=== PATIENT | female | born 1980 | race Caucasian/White ===

== ENCOUNTER 2017-06-28 00:06 | Emergency (ER) | payer OTHER ==
--- NOTE | 2017-06-28 00:59 | EDPHYS ---
Physician Documentation [facility] Name: Wandy Forde Age: 36 yrs Sex: Female : 1980 Arrival Date: 06/28/2017 Time: 00:11 Bed 18 Private MD: ED Physician Fletcher Soares HPI: 06/28 01:10 This 36 yrs old Female presents to ER via Ambulatory with complaints of snw Pelvic Pain. 01:10 The patient presents with right inguinal bump with tenderness. Onset: The snw symptoms/episode began/occurred suddenly, last night, and became persistent. Associated signs and symptoms: Pertinent positives: painful to touch area at right inguinal area. Severity of symptoms: At their worst the symptoms were mild, moderate. The patient has not experienced similar symptoms in the past. The patient has not recently seen a physician. no fever, vaginal discharge, + cutaneous abscess that popped on it's own about a week ago. 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 - Social history:: Smoking status: Patient/guardian denies using tobacco. ROS: 01:09 Constitutional: Negative for fever, chills, and weight loss, Eyes: Negative for injury, snw pain, redness, and discharge, ENT: Negative for injury, pain, and discharge, Neck: Negative for injury, pain, and swelling, Cardiovascular: Negative for chest pain, palpitations, and edema, Respiratory: Negative for shortness of breath, cough, wheezing, and pleuritic chest pain, Abdomen/GI: Negative for abdominal pain, nausea, vomiting, diarrhea, and constipation, Back: Negative for injury and pain, : Negative for injury, bleeding, discharge, Positive swelling to low right inguinal canal with "bump" MS/Extremity: Negative for injury and deformity, Skin: Negative for injury, rash, and discoloration, Neuro: Negative for headache, weakness, numbness, tingling, and seizure. Exam: 01:01 Constitutional: This is a well developed, well nourished patient who is awake, alert, snw and in no acute distress. Head/Face: Normocephalic, atraumatic. Eyes: Pupils equal round and reactive to light, extra-ocular motions intact. Lids and lashes normal. Conjunctiva and sclera are non-icteric and not injected. Cornea within normal limits. Periorbital areas with no swelling, redness, or edema. ENT: Nares patent. No nasal discharge, no septal abnormalities noted. Tympanic membranes are normal and external auditory canals are clear. Oropharynx with no redness, swelling, or masses, exudates, or evidence of obstruction, uvula midline. Mucous membranes moist. Neck: Trachea midline, no thyromegaly or masses palpated, and no cervical lymphadenopathy. Supple, full range of motion without nuchal rigidity, or vertebral point tenderness. No Meningismus. Chest/axilla: Normal chest wall appearance and motion. Nontender with no deformity. No lesions are appreciated. Cardiovascular: Regular rate and rhythm with a normal S1 and S2. No gallops, murmurs, or rubs. Normal PMI, no JVD. No pulse deficits. Respiratory: Lungs have equal breath sounds bilaterally, clear to auscultation and percussion. No rales, rhonchi or wheezes noted. No increased work of breathing, no retractions or nasal flaring. Abdomen/GI: Soft, non-tender, with normal bowel sounds. No distension or tympany. No guarding or rebound. No evidence of tenderness throughout. Back: No spinal tenderness. No costovertebral tenderness. Full range of motion. Pelvic Exam: Normal external genitalia with small healing cutaneous abscess, tender, edematous right inguinal lymph node. Skin: Warm, dry with normal turgor. Normal color with no rashes, no lesions, and no evidence of cellulitis. MS/ Extremity: Pulses equal, no cyanosis. Neurovascular intact. Full, normal range of motion. Neuro: Awake and alert, GCS 15, oriented to person, place, time, and situation. Cranial nerves II-XII grossly intact. Motor strength 5/5 in all extremities. Sensory grossly intact. Cerebellar exam normal. Normal gait. Psych: Awake, alert, with orientation to person, place and time. Behavior, mood, and affect are within normal limits. Vital Signs: 00:43 BP 133 / 82; Pulse 104; Resp 18; Temp 98.1(TE); Pulse Ox 100% on R/A; Weight 74.84 kg ak1 (R); Height 5 ft. 5 in. (165.10 cm) (R); Pain 6/10; 01:18 BP 115 / 74; Pulse 93; Resp 16; Pulse Ox 97% on R/A; Pain 0/10; mb3 00:43 Body Mass Index 27.46 (74.84 kg, 165.10 cm) ak1 MDM: 00:52 Patient medically screened. snw 01:08 Data reviewed: vital signs, nurses notes. Data interpreted: Pulse oximetry: on room air snw is 100 %. Interpretation: normal. Counseling: I had a detailed discussion with the patient and/or guardian regarding: the historical points, exam findings, and any diagnostic results supporting the discharge/admit diagnosis, the presence of at least one elevated blood pressure reading (>120/80) during this emergency department visit, lab results, the need for outpatient follow up, to return to the emergency department if symptoms worsen or persist or if there are any questions or concerns that arise at home. Special discussion: I have referred the patient to see his PCP for further evaluation of high blood pressure. Based on the history and exam findings, there is no indication for further emergent testing or inpatient evaluation. I discussed with the patient/guardian the need to see the primary care provider for further evaluation of the symptoms. 06/28 00:57 Order name: Urine Dipstick--Ancillary (enter results); Complete Time: 01:11 em1 06/28 00:57 Order name: Urine --Ancillary (enter results); Complete Time: 01:11 em1 06/28 00:57 Order name: Urine Dipstick-Ancillary (obtain specimen); Complete Time: 00:57 em1 06/28 00:57 Order name: Urine Test (obtain specimen); Complete Time: 00:57 em1 Administered Medications: 01:08 Drug: Clindamycin 300 mg Route: PO; mb3 01:25 Follow up: Response: No adverse reaction mb3 01:08 Drug: TORadol 60 mg Route: IM; Site: right gluteus; mb3 01:25 Follow up: Response: No adverse reaction; Pain is decreased mb3 Disposition: 06/28/17 00:58 Discharged to Home. Impression: INFLAMMED INGUINAL LYMPH NODE, CUTANEOUS ABSCESS OF LABIA. - Condition is Stable. - Discharge Instructions: Abscess, Sitz Bath, Lymphadenopathy. - Prescriptions for Clindamycin HCl 300 mg Oral Capsule - take 1 capsule by ORAL route every 6 hours for 10 days; 40 capsule. Diclofenac Sodium 75 mg Oral Tablet Sustained Release - take 1 tablet by ORAL route 2 times per day; 30 tablet. - Medication Reconciliation Form, Thank You Letter, Antibiotic Education, Prescription Opioid Use form. - Follow up: Private Physician; When: 2 - 3 days; Reason: Recheck today's complaints, Continuance of care, Re-evaluation by your physician. Follow up: Emergency Department; When: As needed; Reason: Worsening of condition. Addendum: 07/01/2017 19:49 Co-signature as Attending Physician, Fletcher Soares MD. g s Signatures: Dispatcher [employer] EDMS Margarita Steward, PAINTER HELPER SPRAY-C PAINTER HELPER SPRAY-Csnw James Garcia1 Cece Garcia, RN RN ak1 Fletcher Soares MD MD Ulises Scruggs, RN RN mb3 Corrections: (The following items were deleted from the chart) 06/28 01:00 00:58 06/28/2017 00:58 Discharged to Home. Impression: INFLAMMED INGUINAL LYMPH NODE. snw Condition is Stable. Forms are Medication Reconciliation Form, Thank You Letter, Antibiotic Education, Prescription Opioid Use. Follow up: Private Physician; When: 2 - 3 days; Reason: Recheck today's complaints, Continuance of care, Re-evaluation by your physician. Follow up: Emergency Department; When: As needed; Reason: Worsening of condition. snw 01:25 01:00 06/28/2017 00:58 Discharged to Home. Impression: INFLAMMED INGUINAL LYMPH NODE; mb3 CUTANEOUS ABSCESS OF LABIA. Condition is Stable. Forms are Medication Reconciliation Form, Thank You Letter, Antibiotic Education, Prescription Opioid Use. Follow up: Private Physician; When: 2 - 3 days; Reason: Recheck today's complaints, Continuance of care, Re-evaluation by your physician. Follow up: Emergency Department; When: As needed; Reason: Worsening of condition. snw
--- NOTE | 2017-06-28 00:59 | ER ---
Nurse's Notes [facility] Name: Wandy Forde Age: 36 yrs Sex: Female : 1980 Arrival Date: 06/28/2017 Time: 00:11 Bed 18 Private MD: Diagnosis: INFLAMMED INGUINAL LYMPH NODE;CUTANEOUS ABSCESS OF LABIA Presentation: 06/28 00:44 Presenting complaint: Patient states: right lower abd, right pelvic pain started ak1 tonight. pt stated pain increased with palpation. pt stated she "felt a bump". Transition of care: patient was not received from another setting of care. Onset of symptoms was June 28, 2017. Initial Sepsis Screen: Does the patient meet any 2 criteria? No. Patient's initial sepsis screen is negative. Does the patient have a suspected source of infection? No. Patient's initial sepsis screen is negative. Care prior to arrival: None. 00:44 Method Of Arrival: Ambulatory ak1 00:44 Acuity: RAY 4 ak1 Triage Assessment: 00:46 General: Appears in no apparent distress. Behavior is calm, cooperative. Pain: ak1 Complains of pain in right femoral area and right inguinal area. EENT: No signs and/or symptoms were reported regarding the EENT system. Neuro: No deficits noted. Cardiovascular: No deficits noted. Respiratory: No deficits noted. GI: No signs and/or symptoms were reported involving the gastrointestinal system. : Reports cramping, in right lower quadrant(s) urinary frequency. Derm: No signs and/or symptoms reported regarding the dermatologic system. Musculoskeletal: No signs and/or symptoms reported regarding the musculoskeletal system. 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 - Social history:: Smoking status: Patient/guardian denies using tobacco. Screenin:47 Abuse screen: Denies threats or abuse. Denies injuries from another. Nutritional ak1 screening: No deficits noted. Tuberculosis screening: No symptoms or risk factors identified. Fall Risk None identified. Assessment: 00:52 General: Appears in no apparent distress. uncomfortable, well groomed, well developed, kr2 well nourished, Behavior is calm, cooperative. Pain: Complains of pain in right femoral area and right inguinal area Pain currently is 2 out of 10 on a pain scale. at worst was 10 out of 10 on a pain scale. Quality of pain is described as sharp, shooting, stabbing, Pain began 2 hours ago. Is intermittent, Alleviated by rest, Aggravated by increased activity, palpation Noted to be guarding. Neuro: Level of Consciousness is awake, alert, obeys commands, Oriented to person, place, time, situation. Cardiovascular: Capillary refill < 3 seconds in bilateral fingers Patient's skin is warm and dry. Respiratory: Airway is patent Respiratory effort is even, unlabored, Respiratory pattern is regular, symmetrical. GI: Abdomen is flat, non-distended, Abd is soft and non tender X 4 quads. Patient currently denies nausea, vomiting. : Denies burning with urination, discharge. EENT: Oral mucosa is moist. Derm: Skin is intact, is healthy with good turgor, Skin is pink, warm \\T\\ dry. Musculoskeletal: Circulation, motion, and sensation intact. Vital Signs: 00:43 BP 133 / 82; Pulse 104; Resp 18; Temp 98.1(TE); Pulse Ox 100% on R/A; Weight 74.84 kg ak1 (R); Height 5 ft. 5 in. (165.10 cm) (R); Pain 6/10; 01:18 BP 115 / 74; Pulse 93; Resp 16; Pulse Ox 97% on R/A; Pain 0/10; mb3 00:43 Body Mass Index 27.46 (74.84 kg, 165.10 cm) ak1 ED Course: 00:11 Patient arrived in ED. do 00:45 Triage completed. ak1 00:46 Arm band placed on Patient placed in an exam room, on a stretcher, on pulse oximetry, ak1 Patient notified of wait time. 00:47 Patient has correct armband on for positive identification. Bed in low position. Call ak1 light in reach. Side rails up X 1. Adult w/ patient. Pulse ox on. NIBP on. 00:48 Margarita Steward FNP-C [facility]. snw 00:48 Fletcher Soares MD is Attending Physician. snw 00:52 Christel Fair, RN is Primary Nurse. kr2 00:55 No provider procedures requiring assistance completed. kr2 01:20 Patient did not have IV access during this emergency room visit. mb3 Administered Medications: 01:08 Drug: Clindamycin 300 mg Route: PO; mb3 01:25 Follow up: Response: No adverse reaction mb3 01:08 Drug: TORadol 60 mg Route: IM; Site: right gluteus; mb3 01:25 Follow up: Response: No adverse reaction; Pain is decreased mb3 Outcome: 00:58 Discharge ordered by MD. snw 01:19 Discharged to home ambulatory. mb3 01:19 Condition: improved 01:19 Discharge instructions given to patient, family, Instructed on discharge instructions, follow up and referral plans. medication usage, Demonstrated understanding of instructions, follow-up care, medications, Prescriptions given X 2. 01:25 Patient left the ED. mb3 Signatures: Margarita Steward, SOFTWARE SYSTEMS ANALYST-C SOFTWARE SYSTEMS ANALYST-Csnw Cece Garcia RN RN ak1 Martha Carpio Karey, RN RN kr2 Ulises Scruggs, RN RN mb3
[2017-06-28] MEDS ORDERED: CLINDAMYCIN HCL 150 MG CAP ONE (01:01)
[2017-06-28] MEDS ORDERED: KETOROLAC 30 MG/ML INJ ONE (01:02)
[2017-06-28 01:09] LABS: Urine Blood NEGATIVE (NEG); Urine Glucose NEGATIVE (NEG); Urine Protein NEGATIVE (NEG); Urine Specific Gravity 1.015 (1.005-1.030); Urine pH 7.5 (5.0-7.0)
== END 2017-06-28 01:25 | disposition home or self-care (01) ==
LOC: ER 00:06
DX: N76.4 Abscess of vulva (principal); I88.8 Other nonspecific lymphadenitis
CPT/HCPCS: 81003; 81025; 96372; 99283